=== PATIENT | female | born 1950 | race African-American/Black ===

== ENCOUNTER 2016-07-29 14:27 | Observation (INO) | payer OTHER ==
[~2016-07-29] VITALS: Ht 157.5 cm; Wt 75.0 kg
[~2016-07-29 14:27] MED LIST: CLARITIN,ALAVAR10 MG PO; Ecotrin PO; Zithromax PO
[2016-07-29 15:12] LABS: MCH 27.1 PG (29.0-34.0); MCHC 31.7 G/DL (30.0-36.0); MCV 85.6 FL (83-99); MEAN PLAT.VOLUME 10.5 uM^3 (9.5-12.4); PLATELET COUNT 320 K/uL (156-360); RBC DIS.WIDTH-CV 15.1 % (11.8-14.6); RBC DIS.WIDTH-SD 47.8 % (39-53); RED BLOOD COUNT 4.79 M/uL (3.80-5.20); WHITE BLOOD COUNT 6.7 K/uL (4.1-10.2)
[2016-07-29 15:21] LABS: CHLORIDE 108 mEq/L (99-109); POTASSIUM 4.5 mEq/L (3.7-5.4); SODIUM 140 mEq/L (136-147)
[2016-07-29 15:23] LABS: GLUCOSE 108 mg/dL (70-99)
[2016-07-29 15:25] LABS: ANION GAP 13 MEQ/L (2-14)
[2016-07-29 15:27] LABS: GFR ESTIMATE (CALCULATED) > 59 mL/min/
[2016-07-29 15:39] LABS: UREA NITROGEN (BUN) 16 mg/dL (9-23)
[2016-07-29 15:43] LABS: TROP-I INTERPRETATION NEGATIVE; TROPONIN-I < 0.01 ng/mL (0.0-0.30)
[2016-07-29] MEDS ORDERED: ECOTRIN325 MG PO (16:38)
[2016-07-29 17:47] VITALS: BP 181/85
[2016-07-29 20:00] VITALS: BP 125/60
[2016-07-29 21:20] LABS: TROP-I INTERPRETATION NEGATIVE; TROPONIN-I < 0.01 ng/mL (0.0-0.30)
[2016-07-30] VITALS: BP 107/57
[2016-07-30 00:04] VITALS: BP 96/51
[2016-07-30 03:26] LABS: TROP-I INTERPRETATION NEGATIVE; TROPONIN-I < 0.01 ng/mL (0.0-0.30)
[2016-07-30 04:00] VITALS: BP 105/53
[2016-07-30 07:21] LABS: MCH 26.6 PG (29.0-34.0); MCHC 30.8 G/DL (30.0-36.0); MCV 86.4 FL (83-99); MEAN PLAT.VOLUME 10.8 uM^3 (9.5-12.4); PLATELET COUNT 289 K/uL (156-360); RBC DIS.WIDTH-CV 15.6 % (11.8-14.6); RBC DIS.WIDTH-SD 49.1 % (39-53); RED BLOOD COUNT 4.28 M/uL (3.80-5.20); WHITE BLOOD COUNT 6.2 K/uL (4.1-10.2)
[2016-07-30 07:23] LABS: Estimated Average Glucose 131 mg/dL (70-123); HEMOGLOBIN A1c (GLYCOHEMOGLOB) 6.2 % HGB (Below 5.7)
[2016-07-30 08:07] LABS: ANION GAP 8 MEQ/L (2-14); CHLORIDE 107 MEQ/L (99-109); GFR ESTIMATE (CALCULATED) > 59 mL/min/; GLUCOSE 99 mg/dL (70-99); HDL CHOLESTEROL 38 MG/DL (Desirable>=50); LDL CHOLESTEROL 55 mg/dL (Desirable<100); NON-HDL CHOLESTEROL 69 mg/dL (Desirable<160); POTASSIUM 4.4 MEQ/L (3.7-5.4); SAMPLE HEMOLYSIS CHECK 0; SAMPLE ICTERIC CHECK 0; SAMPLE LIPEMIA CHECK 0; SODIUM 141 MEQ/L (136-147); TOTAL CHOLESTEROL 107 mg/dL (Desirable<200); TRIGLYCERIDES 71 MG/DL (Normal: <150); UREA NITROGEN (BUN) 21 mg/dL (9-23)
[2016-07-30 08:19] VITALS: BP 108/52
[2016-07-30] MEDS ORDERED: CARVEDILOL6.25 MG PO (09:18)
[2016-07-30] MEDS ORDERED: PRAVASTATIN SOD40 MG PO (09:18)
[2016-07-30] MEDS ORDERED: LISINOPRIL5 MG PO (09:18)
[2016-07-30 11:23] VITALS: BP 112/63
== END 2016-07-30 12:02 | disposition home or self-care (01) ==
LOC: EME 14:27 → EDOF 16:00 → 5WEST 17:29
PROVIDERS: Emergency Medicine; Hospitalist
DX: R07.89 Other chest pain (principal); R10.13 Epigastric pain; I10 Essential (primary) hypertension; E78.5 Hyperlipidemia, unspecified
CPT/HCPCS: 71010; 76705; 80048; 80061; 83036; 84484; 85027; 93005; 99281; 99284; G0378; J1650

== ENCOUNTER 2016-10-24 20:19 | Emergency (ER) | payer OTHER ==
[~2016-10-24] VITALS: Ht 154.9 cm; Wt 71.3 kg
[~2016-10-24 20:19] MED LIST changes: +CARVEDILOL6.25 MG PO; +ECOTRIN325 MG PO; +LISINOPRIL5 MG PO; +PRAVASTATIN SOD40 MG PO
[2016-10-24 21:03] LABS: HEMATOCRIT 42.5 % (36.0-46.0); MCH 27.2 PG (29.0-34.0); MCHC 31.5 G/DL (30.0-36.0); MCV 86.4 FL (83-99); RBC DIS.WIDTH-CV 15.1 % (11.8-14.6); RBC DIS.WIDTH-SD 48.2 % (39-53); RED BLOOD COUNT 4.92 M/uL (3.80-5.20); WHITE BLOOD COUNT 8.7 K/uL (4.1-10.2)
[2016-10-24 21:13] LABS: CHLORIDE 104 mEq/L (99-109)
[2016-10-24 21:14] LABS: POTASSIUM 3.8 mEq/L (3.7-5.4); SODIUM 141 mEq/L (136-147)
[2016-10-24 21:15] LABS: GLUCOSE 93 mg/dL (70-99)
[2016-10-24 21:17] LABS: ANION GAP 11 MEQ/L (2-14)
[2016-10-24 21:19] LABS: GFR ESTIMATE (CALCULATED) > 59 mL/min/
[2016-10-24 21:20] LABS: UREA NITROGEN (BUN) 15 mg/dL (9-23)
[2016-10-24 21:43] LABS: MEAN PLAT.VOLUME 10.7 uM^3 (9.5-12.4); PLAT.SUFFICIENCY ADEQUATE; PLATELET COUNT 285 K/uL (156-360)
[2016-10-24 22:03] LABS: TOTAL BILIRUBIN 0.4 mg/dL (0.0-1.0)
[2016-10-24 22:04] LABS: ALKALINE PHOSPHATASE 63 IU/L (3-129)
[2016-10-24 22:06] LABS: DIRECT BILIRUBIN 0.2 mg/dL (0.0-0.3)
[2016-10-24 22:07] LABS: D-DIMER ELISA < 0.15 mg/L FEU (< 0.57); LIPASE 18 U/L (1.0-51.0); PTT 21.9 (25-32)
[2016-10-24] MEDS ORDERED: ZITHROMAX Z-PA250 MG PO (22:11)
[2016-10-24 22:38] VITALS: BP 163/51
== END 2016-10-24 22:40 | disposition home or self-care (01) ==
LOC: EME 20:19 → EXP 20:19
DX: J18.9 Pneumonia, unspecified organism (principal); J45.909 Unspecified asthma, uncomplicated; I10 Essential (primary) hypertension
CPT/HCPCS: 71020; 80048; 80076; 83690; 85027; 85379; 85610; 85730; 99281; 99284; J0696

== ENCOUNTER 2017-03-25 21:39 | Emergency (ER) | payer OTHER ==
[~2017-03-25] VITALS: Ht 154.9 cm; Wt 72.4 kg
[~2017-03-25 21:39] MED LIST changes: +ZITHROMAX Z-PA250 MG PO
[2017-03-25 23:13] LABS: EOSINOPHIL (%) 1.4 % (0-5); EOSINOPHIL COUNT 0.1 K/uL (0-0.3); HEMATOCRIT 39.3 % (36.0-46.0); IMMATURE GRANULOCYTE (%) 0.5 % (0.0-0.7); INSTRUMENT ABS NEUTROPHIL CT 3.4 K/uL; LYMPHOCYTE COUNT 4.1 K/uL (1.0-2.8); MCHC 31.3 G/DL (30.0-36.0); MCV 86.2 FL (83-99); MEAN PLAT.VOLUME 10.6 uM^3 (9.5-12.4); MONOCYTE (%) 8.3 % (3-12); MONOCYTE COUNT 0.7 K/uL (0-0.8); NEUTROPHIL (%) 40.6 % (45-76); NEUTROPHIL COUNT 3.4 K/uL (1.8-6.4); PLATELET COUNT 301 K/uL (156-360); RBC DIS.WIDTH-CV 14.9 % (11.8-14.6); RBC DIS.WIDTH-SD 47.2 % (39-53); RED BLOOD COUNT 4.56 M/uL (3.80-5.20); WHITE BLOOD COUNT 8.3 K/uL (4.1-10.2)
[2017-03-25 23:20] LABS: CHLORIDE 108 mEq/L (99-109); POTASSIUM 3.9 mEq/L (3.7-5.4); SODIUM 141 mEq/L (136-147)
[2017-03-25 23:22] LABS: GLUCOSE 119 mg/dL (70-99)
[2017-03-25 23:23] LABS: ANION GAP 6 MEQ/L (2-14)
[2017-03-25 23:24] LABS: TOTAL BILIRUBIN 0.2 mg/dL (0.0-1.0)
[2017-03-25 23:25] LABS: ALKALINE PHOSPHATASE 60 IU/L (3-129)
[2017-03-25 23:26] LABS: GFR ESTIMATE (CALCULATED) 58 mL/min/
[2017-03-25 23:27] LABS: DIRECT BILIRUBIN 0.1 mg/dL (0.0-0.3); UREA NITROGEN (BUN) 23 mg/dL (9-23)
[2017-03-25 23:29] LABS: LIPASE 32 U/L (1.0-51.0)
[2017-03-25 23:32] LABS: TROP-I INTERPRETATION NEGATIVE; TROPONIN-I < 0.01 ng/mL (0.0-0.30)
[2017-03-26 00:05] LABS: ADD MIUA? YES; BILIRUBIN NEGATIVE; BLOOD NEGATIVE; COLOR YELLOW ((YELLOW)); GLUCOSE (STRIP) NEGATIVE; KETONES NEGATIVE; LEUKOCYTES SMALL; NITRITE NEGATIVE; PROTEIN (STRIP) 30; SPECIFIC GRAVITY 1.021 (1.000-1.030); UROBILINOGEN 0.2 MG/DL (0.2-1.0)
[2017-03-26 00:10] LABS: BACTERIA NONE SEEN /HPF; EPITHELIAL CELLS RARE /HPF; MUCUS TRACE /LPF; UCUL ADDED? YES
[2017-03-26] MEDS ORDERED: KEFLEX500 MG PO (00:33)
[2017-03-26 01:21] VITALS: BP 171/84
== END 2017-03-26 01:27 | disposition home or self-care (01) ==
LOC: EME 21:39
PROVIDERS: Emergency Medicine
DX: N39.0 Urinary tract infection, site not specified (principal); R42 Dizziness and giddiness; J45.909 Unspecified asthma, uncomplicated; I10 Essential (primary) hypertension; F31.9 Bipolar disorder, unspecified
CPT/HCPCS: 70450; 71020; 80048; 80076; 81003; 83690; 83880; 84484; 85025; 87077; 87086; 87186; 93005; 99281; 99284

== ENCOUNTER 2017-03-30 13:49 | Emergency (ER) | payer OTHER ==
[~2017-03-30] VITALS: Ht 162.6 cm; Wt 70.2 kg
[~2017-03-30 13:49] MED LIST changes: +KEFLEX500 MG PO
[2017-03-30] MEDS ORDERED: ACETAMINOPHEN-1 EAC1 PO (15:59)
[2017-03-30] MEDS ORDERED: MOTRIN800 MG PO (15:59)
[2017-03-30 16:10] VITALS: BP 131/72
== END 2017-03-30 16:58 | disposition home or self-care (01) ==
LOC: EME 13:49
DX: M25.551 Pain in right hip (principal); M79.604 Pain in right leg; R20.2 Paresthesia of skin; M16.0 Bilateral primary osteoarthritis of hip; Z79.82 Long term (current) use of aspirin
CPT/HCPCS: 72100; 73502; 99281; 99284; J1885